=== PATIENT | male | born 1960 | race Caucasian/White ===

== ENCOUNTER 2017-04-25 07:55 | Day surgery (SDC) | payer OTHER ==
[~2017-04-25 07:55] MED LIST: Lactated Ringers 1,000 ML IV SCH; Sodium Chloride 0.9% 10 ML Syringe FLUSH PRN
[2017-04-25] MEDS ORDERED: fentaNYL 100 MCG/2 ML SDV ONE (09:28)
[2017-04-25] MEDS ORDERED: Propofol 200 MG/20 ML SDV ONE ×2 (09:28→11:53)
[2017-04-25] MEDS ORDERED: Midazolam 1 MG/ML 2 ML SDV ONE (09:28)
--- NOTE | 2017-04-25 12:50 | OR ---
Date of Procedure: 04/25/2017 PREOPERATIVE DIAGNOSIS: Gastroesophageal reflux disease. POSTOPERATIVE DIAGNOSIS: Distal esophagitis. PROCEDURE: EGD with biopsy. ANESTHESIA: IV sedation. DESCRIPTION OF PROCEDURE: The patient was brought to the procedure room, where he was placed on the left side and IV sedation administered. Oral bite block was placed and the upper endoscope advanced into the esophagus under direct vision without difficulty. Vocal cords were viewed and were normal. Scope was advanced to the 3rd portion of the duodenum. The duodenum and pylorus were normal. Antrum and body of the stomach were normal. Retroflexion reveals a normal appearing fundus. There was no hiatal hernia. Squamocolumnar junction is inflamed and irregular with evidence of reflux esophagitis. I did take 4 biopsies from the GE junction and sent for pathology review. Photographs were taken. Air was removed from the stomach and the scope withdrawn through the remaining esophagus, which appears normal. The patient tolerated the procedure well and returned to recovery in stable condition. The patient will follow up with Anibal Wise in 1 week for review of biopsies. I will have him start a proton pump inhibitor in the meantime. AMAYA CHRISTENSEN MD /[id number]
[2017-04-25 14:09] VITALS: BP 106/68
--- NOTE | 2017-04-27 09:55 | PCM.SN ---
- Free Text/Narrative Note: The patient recieved a total of 200mg of propofal during the procedure. Maryellen Coto CRYSTAL GROWER
== END 2017-04-25 10:25 | disposition home or self-care (01) ==
LOC: LL.SDS 07:55
PROVIDERS: ATTEND Surgery
DX: K21.0 Gastro-esophageal reflux disease with esophagitis (principal); I10 Essential (primary) hypertension; E78.00 Pure hypercholesterolemia, unspecified; K21.9 Gastro-esophageal reflux disease without esophagitis; Z79.899 Other long term (current) drug therapy
CPT/HCPCS: 43239; J7120; 00740; J2704

== ENCOUNTER 2019-07-11 12:32 | Emergency (ER) | payer OTHER ==
[2019-07-11] MEDS ORDERED: Ondansetron 4 MG/2 ML SDV IVPUSH ONE (12:54)
[2019-07-11] MEDS ORDERED: Sodium Chloride 0.9% 1,000 ML IV ONE ×2 (12:54→15:15)
[2019-07-11] MEDS ORDERED: Sodium Chloride 0.9% 10 ML Syringe FLUSH PRN (12:55)
--- NOTE | 2019-07-11 13:01 | EDM.PDOC ---
ED HPI GENERAL MEDICAL PROBLEM - General Chief Complaint: Fever Stated Complaint: nausea/vomiting,fever Time Seen by Provider: 07/11/19 12:54 Source of Information: Reports: Patient History Limitations: Reports: No Limitations - History of Present Illness INITIAL COMMENTS - FREE TEXT/NARRATIVE: 5 day history of abdominal pain. Gradually worsening over time. Initially had loose bowel movement on day one. Since then no diarrhea/constipation. No hematochezia. Cramping pain, sometimes shifting from one side to other, however no focal site of increased pain. No radiation of pain. Eating/drinking/position changes does not affect or trigger pain. Crampy pain persisted for several days. Yesterday developed nausea/emesis. Has not wanted to eat or drink much for the last several days. Initially in early phases of illness still had good appetite. No obvious fevers/chills. Noted to have fever during ER intake however. No known exposures to illness. No history of similar pain in past. Denies HEENT changes/JENSEN/vision change/ST/runny nose/ear pain. Denies Resp changes/cough/wheeze/SOB Denies chest pain/palpitations/dizziness Denies changes in urination/frequency/hematuria/flank pain No neuro changes/numbness/focal weakness No other acute changes reported. Abdomen Pain Score (Numeric/FACES): 4 - Related Data Allergies Allergy/AdvReac Type Severity Reaction Status Date / Time No Known Allergies Allergy Unverified 07/11/19 13:21 Home Meds: Home Meds Lisinopril [Prinivil] 20 mg PO DAILY 10/14/13 [History] [place]-3/DHA/Epa/Fish Oil [[place]-3 Fish Oil 1,000 MG Sfgl] 1,000 mg PO DAILY 01/03 [History] Cholecalciferol (Vitamin D3) [Vitamin D3] 50 mcg PO DAILY 07/11/19 [History] Magnesium Citrate 100 mg PO DAILY 07/11/19 [History] Omeprazole 20 mg PO DAILY 07/11/19 [History] Ubidecarenone [Co Q-10] 100 mg PO DAILY 07/11/19 [History] Past Medical History HEENT History: Reports: Impaired Vision Other HEENT History: wears glasses Cardiovascular History: Reports: High Cholesterol, Hypertension, Syncope, Other (See Below) Other Cardiovascular History: atypical chest pain, atypical syncope Respiratory History: Reports: Pneumonia, Recurrent Gastrointestinal History: Reports: GERD Genitourinary History: Reports: None Musculoskeletal History: Reports: Arthritis Neurological History: Reports: None Psychiatric History: Reports: None Endocrine/Metabolic History: Reports: Obesity/BMI 30+, Vitamin D Deficiency Hematologic History: Reports: None Immunologic History: Reports: None Oncologic (Cancer) History: Reports: None Dermatologic History: Reports: None Social & Family History - Tobacco Use Smoking Status *Q: Never Smoker - Caffeine Use Caffeine Use: Reports: Coffee, Soda - Alcohol Use Alcohol Use History: Yes Alcohol Use Frequency: Rarely - Recreational Drug Use Recreational Drug Use: No Drug Use in Last 12 Months: No ED ROS GENERAL - Review of Systems Review Of Systems: Comprehensive ROS is negative, except as noted in HPI. ED EXAM, GENERAL - Physical Exam Exam: See Below Exam Limited By: No Limitations General Appearance: Alert, Mild Distress Course - Vital Signs Last Recorded V/S: Last Vital Signs Temp 38.6 C H 07/11/19 15:25 Pulse 90 07/11/19 17:00 Resp 20 07/11/19 17:00 BP 119/72 07/11/19 17:00 Pulse Ox 90 L 07/11/19 17:00 - Orders/Labs/Meds Orders: Active Orders 24 hr Category Date Time Status Abdomen Pelvis w Cont [CT] Stat Exams 07/11/19 12:55 Taken Saline Lock Insert [OM.PC] Stat Oth 07/11/19 12:55 Ordered Labs: Laboratory Tests 07/11/19 07/11/19 07/11/19 Range/Units 13:00 13:00 13:00 WBC 12.1 H (4.0-10.2) K/uL RBC 5.16 (4.33-5.41) M/uL Hgb 14.6 (13.1-16.8) g/dL Hct 42.6 (39.0-49.0) % MCV 82.6 L (84.0-98.0) fL MCH 28.3 (28.2-33.3) pg MCHC 34.3 (31.7-36.0) g/dL RDW 13.4 (11.2-14.1) % Plt Count 158 (150-350) K/uL Neut % (Auto) 88.3 H (45.0-80.0) % Lymph % (Auto) 6.5 L (10.0-50.0) % [place] % (Auto) 5.1 (2.0-14.0) % Eos % (Auto) 0.0 (0.0-5.0) % Baso % (Auto) 0.1 (0.0-2.0) % Neut # (Auto) 10.68 H (1.40-7.00) K/uL Lymph # (Auto) 0.78 (0.50-3.50) K/uL [place] # (Auto) 0.62 (0.00-1.00) K/uL Eos # (Auto) 0.00 (0.00-0.50) K/uL Baso # (Auto) 0.01 (0.00-0.20) K/uL Sodium 138 (136-145) mmol/L Potassium 4.0 (3.5-5.1) mmol/L Chloride 101 (98-107) mmol/L Carbon Dioxide 24.7 (21.0-32.0) mmol/L BUN 15 (7-18) mg/dL Creatinine 0.99 (0.51-1.17) mg/dL Est Cr Clr Drug Dosing 85.00 mL/min Estimated GFR (MDRD) > 60 mL/min Glucose 134 H (74-106) mg/dL Lactic Acid 1.9 (0.4-2.0) mmol/L Calcium 8.9 (8.5-10.1) mg/dL Magnesium 1.7 L (1.8-2.4) mg/dL Total Bilirubin 1.5 H (0.2-1.0) mg/dL AST 14 L (15-37) U/L ALT 24 (12-78) U/L Alkaline Phosphatase 98 (46-116) IU/L Total Protein 7.5 (6.4-8.2) g/dL Albumin 3.5 (3.4-5.0) g/dL Amylase (25-115) U/L Lipase (73-393) U/L Specimen Type Urine Color Urine Appearance Urine pH (5.0-9.0) Ur Specific [place] (1.005-1.030) Urine Protein (NEGATIVE) mg/dL Urine Glucose (UA) (NEGATIVE) mg/dL Urine Ketones (NEGATIVE) mg/dL Urine Occult Blood (NEGATIVE) Urine Nitrite (NEGATIVE) Urine Bilirubin (NEGATIVE) Urine Urobilinogen (0.2-1.0) E.U./dL Ur Leukocyte Esterase (NEGATIVE) Urine RBC /HPF Urine WBC /HPF Ur Epithelial Cells /LPF Urine Bacteria (NONE TO FEW) /HPF Urine Mucus (NEGATIVE) /LPF 07/11/19 07/11/19 Range/Units 13:00 14:15 WBC (4.0-10.2) K/uL RBC (4.33-5.41) M/uL Hgb (13.1-16.8) g/dL Hct (39.0-49.0) % MCV (84.0-98.0) fL MCH (28.2-33.3) pg MCHC (31.7-36.0) g/dL RDW (11.2-14.1) % Plt Count (150-350) K/uL Neut % (Auto) (45.0-80.0) % Lymph % (Auto) (10.0-50.0) % [place] % (Auto) (2.0-14.0) % Eos % (Auto) (0.0-5.0) % Baso % (Auto) (0.0-2.0) % Neut # (Auto) (1.40-7.00) K/uL Lymph # (Auto) (0.50-3.50) K/uL [place] # (Auto) (0.00-1.00) K/uL Eos # (Auto) (0.00-0.50) K/uL Baso # (Auto) (0.00-0.20) K/uL Sodium (136-145) mmol/L Potassium (3.5-5.1) mmol/L Chloride (98-107) mmol/L Carbon Dioxide (21.0-32.0) mmol/L BUN (7-18) mg/dL Creatinine (0.51-1.17) mg/dL Est Cr Clr Drug Dosing mL/min Estimated GFR (MDRD) mL/min Glucose (74-106) mg/dL Lactic Acid (0.4-2.0) mmol/L Calcium (8.5-10.1) mg/dL Magnesium (1.8-2.4) mg/dL Total Bilirubin (0.2-1.0) mg/dL AST (15-37) U/L ALT (12-78) U/L Alkaline Phosphatase (46-116) IU/L Total Protein (6.4-8.2) g/dL Albumin (3.4-5.0) g/dL Amylase 26 (25-115) U/L Lipase 90 (73-393) U/L Specimen Type Urinblad Urine Color Dark yellow Urine Appearance Clear Urine pH 5.5 (5.0-9.0) Ur Specific [place] 1.015 (1.005-1.030) Urine Protein 100 H (NEGATIVE) mg/dL Urine Glucose (UA) Negative (NEGATIVE) mg/dL Urine Ketones Trace H (NEGATIVE) mg/dL Urine Occult Blood Negative (NEGATIVE) Urine Nitrite Negative (NEGATIVE) Urine Bilirubin Negative (NEGATIVE) Urine Urobilinogen 1.0 (0.2-1.0) E.U./dL Ur Leukocyte Esterase Negative (NEGATIVE) Urine RBC 0-5 /HPF Urine WBC 0-5 /HPF Ur Epithelial Cells Few /LPF Urine Bacteria Few (NONE TO FEW) /HPF Urine Mucus Few H (NEGATIVE) /LPF Meds: Medications Discontinued Medications Generic Name Dose Route Start Last Admin Trade Name Freq PRN Reason Stop Dose Admin Acetaminophen 1,000 mg 07/11/19 15:15 07/11/19 15:25 Tylenol Extra Strength PO 07/11/19 15:16 1,000 mg ONETIME ONE Administration Diatrizoate Meglum/Diatrizoate Sod 30 ml 07/11/19 14:20 07/11/19 14:21 Gastrografin 37% PO 07/11/19 14:21 30 ml ONETIME ONE Administration Sodium Chloride 1,000 mls @ 999 mls/hr 07/11/19 12:54 07/11/19 13:09 Normal Saline IV 07/11/19 13:54 999 mls/hr .BOLUS ONE Administration Sodium Chloride 1,000 mls @ 999 mls/hr 07/11/19 15:15 07/11/19 15:25 Normal Saline IV 07/11/19 16:15 999 mls/hr .BOLUS ONE Administration Piperacillin Sod/Tazobactam 100 mls @ 200 mls/hr 07/11/19 16:48 07/11/19 17: 11 Sod 3.375 gm/ Sodium Chloride IV 07/11/19 17:17 200 mls/hr ONETIME ONE Administration Iopamidol 100 ml 07/11/19 14:00 07/11/19 14:20 Isovue-300 (61%) IVPUSH 07/11/19 14:01 100 ml ONETIME ONE Administration Morphine Sulfate 2 mg 07/11/19 13:04 07/11/19 13:09 Morphine IVPUSH 07/11/19 13:05 2 mg ONETIME ONE Administration Morphine Sulfate 4 mg 07/11/19 16:49 07/11/19 18:05 Morphine IM 07/11/19 16:50 4 mg ONETIME ONE Administration Ondansetron HCl 4 mg 07/11/19 12:54 07/11/19 13:09 Zofran IVPUSH 07/11/19 12:55 4 mg ONETIME ONE Administration Sodium Chloride 10 ml 07/11/19 12:55 Saline Flush FLUSH ASDIRECTED PRN Keep Vein Open - Radiology Interpretation CT Results Date: 07/11/19 CT Results Time: 16:40 (Acute appendicitis with contained rupture. ) - Re-Assessments/Exams Free Text/Narrative Re-Assessment/Exam: Elevated WBC. Low Mg. Normal lactic acid. Total bili up at 1.5 UA unremarkable for UTI. Patient receive two 1L boluses of NS in addition to Zofran and MS for pain. Improved level of comfort. Tylenol for fever. Vital signs stable. CT of abdomen/pelvis ordered and ultimately was + for ruptured appy. IV Zosyn ordered. Call placed to [facility] and arrangements for transfer made with as accepting MD. Patient transferred by private vehicle to [facility] once bed confirmation obtained and Zosyn dose administered. Departure - Departure Time of Disposition: 18:00 Disposition: DC/Tfer to Acute Hospital 02 Condition: Good Clinical Impression: Hypomagnesemia Appendicitis, acute Qualifiers: Acute appendicitis type: with localized peritonitis Appendicitis gangrene presence: unspecified whether gangrene present Appendicitis perforation presence : with perforation Appendicitis abscess presence: without abscess Qualified Code (s): K35.32 - Acute appendicitis with perforation and localized peritonitis, without abscess - Discharge Information *PRESCRIPTION DRUG MONITORING PROGRAM REVIEWED*: Not Applicable *COPY OF PRESCRIPTION DRUG MONITORING REPORT IN PATIENT FILOMENA: Not Applicable Instructions: Hypomagnesemia, Appendicitis, [id number] Referrals: Rosalba,Clarissa D, [employer] [employer] [Primary Care Provider] - Forms: ED Department Discharge Additional Instructions: Drive directly to [facility]. They are expecting you and you will be admitted for further care and treatment. Recommend starting Magnesium supplement once you have been discharged from the hospital as we discussed in ER. - My Orders Last 24 Hours: My Active Orders 07/11/19 12:55 Abdomen Pelvis w Cont [CT] Stat Saline Lock Insert [OM.PC] Stat - Assessment/Plan Last 24 Hours: My Active Orders 07/11/19 12:55 Abdomen Pelvis w Cont [CT] Stat Saline Lock Insert [OM.PC] Stat
[2019-07-11] MEDS ORDERED: Morphine 2 MG/ML Syringe IVPUSH ONE (13:04)
[2019-07-11 13:27] LABS: CHLORIDE,CL 101 mmol/L (98-107); SODIUM,NA 138 mmol/L (136-145)
[2019-07-11] MEDS ORDERED: Iopamidol 612 MG/ML 100 ML Bottle IVPUSH ONE (14:00)
[2019-07-11] MEDS ORDERED: Diatrizoate Meglumine/Diatrizoate Sodium 37% 30 ML Bottle PO ONE (14:20)
[2019-07-11] MEDS ORDERED: Acetaminophen 500 MG Tab PO ONE (15:15)
[2019-07-11] MEDS ORDERED: Piperacillin/Tazobactam 3.375 GM in Sodium Chloride 0.9% 100 ML IV ONE (16:48)
[2019-07-11] MEDS ORDERED: Morphine 2 MG/ML Syringe IM ONE (16:49)
[2019-07-11 18:22] VITALS: BP 119/72; PULSE 90
== END 2019-07-11 18:11 ==
LOC: LL.ED 12:32
DX: K35.32 Acute appendicitis with perforation, localized peritonitis, and gangrene, without abscess (principal); E83.42 Hypomagnesemia; I10 Essential (primary) hypertension; E78.00 Pure hypercholesterolemia, unspecified; K21.9 Gastro-esophageal reflux disease without esophagitis; E66.9 Obesity, unspecified; Z68.34 Body mass index [BMI] 34.0-34.9, adult; Z79.899 Other long term (current) drug therapy
CPT/HCPCS: 36415; 74177; 80053; 81001; 82150; 83605; 83690; 83735; 85025; 96361; 96365; 96372; 96375; 99284-25; A9270-GY; J2270; J2405; J2543; J7030; J7050; Q9963; Q9967

== ENCOUNTER 2022-07-23 20:04 | Emergency (ER) | payer OTHER ==
[2022-07-23 20:20] VITALS: PULSE 70
[2022-07-23] MEDS ORDERED: Bacitracin Oint 1 GM U/D Packet ONE (20:39)
[2022-07-23] MEDS ORDERED: Diphtheria,Pertussis(Acell),Tetanus Vaccine 0.5 ML Syringe IM ONE (20:45)
[2022-07-23 20:52] VITALS: BP 166/101
== END 2022-07-23 21:25 | disposition home or self-care (01) ==
LOC: LL.ED 20:04
DX: S01.81XA Laceration without foreign body of other part of head, initial encounter (principal); M79.672 Pain in left foot; E78.00 Pure hypercholesterolemia, unspecified; I10 Essential (primary) hypertension; Z23 Encounter for immunization; Z79.899 Other long term (current) drug therapy; W10.8XXA Fall (on) (from) other stairs and steps, initial encounter
CPT/HCPCS: 12011; 90471; 90715; 99283-25